=== PATIENT | female | born 2000 ===

== ENCOUNTER 2024-05-29 06:09 | Inpatient (IN) | payer OTHER ==
[~2024-05-29] VITALS: Ht 154.9 cm; Wt 68.0 kg
[2024-05-29] MEDS ORDERED: RINGERS SOLUTION,LACTATED 1,000 ML IV SCH (07:00)
[2024-05-29 07:04] VITALS: BP 112/72
[2024-05-29] MEDS ORDERED: PRENATABS RX T1 EACH PO (07:25)
[2024-05-29] MEDS ORDERED: MISOPROSTOL 25 MCG/4 ML GEL.W.APPL VAG ONE (08:10)
[2024-05-29 08:26] LABS: HEMATOCRIT 34.1 % (36.0-45.00); HEMOGLOBIN 11.6 g/dL (12.0-15.00); MEAN CELL VOLUME 85.5 fL (80.00-100.00); MEAN CORPUSCULAR HEMOGLOBIN 29.2 pg (27.00-32.0); MEAN CORPUSCULAR HGB CONC 34.1 g/dl (32.0-36.0); PLATELET COUNT 253 K/uL (150-450); RED BLOOD COUNT 3.99 M/uL (4.00-6.00); RED CELL DISTRIBUTION WIDTH 13.6 % (11.5-14.5)
[2024-05-29 08:27] LABS: PH,URINE 6.5 (5.0-8.0); URINE APPEARANCE Clear; URINE BILIRRUBIN Negative (NEGATIVE); URINE BLOOD Negative; URINE COLOR Yellow; URINE GLUCOSE Negative (NEGATIVE); URINE KETONE Negative (NEGATIVE); URINE LEUKOCYTE Small; URINE NITRATE Negative; URINE PROTEIN Negative (NEGATIVE)
[2024-05-29 08:30] LABS: URINE EPITHELIAL CELLS 17.5 uL (0.0-38.8); URINE WBC 22.9 uL (0.0-23.2)
[2024-05-29 08:42] LABS: URINE CAST 0.14 uL (0.0-1.40); URINE RBC 0.8 uL (0.0-20.8)
[2024-05-29 08:57] LABS: INR 0.96; PARTIAL THROMBOPLASTIN TIME 26.8 SECONDS (22.0-34.0); PROTHROMBIN TIME 10.5 SECONDS (9.0-11.5)
[2024-05-29 08:59] LABS: ALBUMIN 2.4 gm/dL (3.4-5.0); BILIRUBIN TOTAL 0.69 mg/dL (0.3-1.2); CALCIUM 8.1 mg/dL (8.5-10.1); CREATININE SERUM 0.68 mg/dL (0.55-1.02); GFR 105.42; GLOBULINA 4.2 G/DL (2.4-3.5); POTASSIUM 4.16 mEq/L (3.5-5.1); TOTAL PROTEIN 6.6 gm/dL (6.4-8.2)
[2024-05-29 11:08] VITALS: BP 127/78
[2024-05-29 15:32] VITALS: BP 122/77
[2024-05-29] MEDS ORDERED: OXYTOCIN 500 ML IV SCH (15:45)
[2024-05-29 18:59] VITALS: BP 120/73
[2024-05-29 23:25] VITALS: BP 101/58
[2024-05-30 03:47] VITALS: BP 115/77
[2024-05-30 07:40] VITALS: BP 113/70
[2024-05-30] MEDS ORDERED: MORPHINE SULFATE 4 MG/ML CARTRIDGE IV ONE (10:10)
[2024-05-30] MEDS ORDERED: IBUprofen 400 MG TABLET PO PRN (12:30)
[2024-05-30] MEDS ORDERED: OXYTOCIN 1,000 ML IV SCH (12:45)
[2024-05-30] MEDS ORDERED: OXYTOCIN 10 UNITS/ML VIAL IM STA (12:45)
[2024-05-30] MEDS ORDERED: CHLORHEXIDINE GLUCONATE 120 ML BOTTLE TOP SCH (12:45)
[2024-05-30 16:01] LABS: HEMATOCRIT 36.3 % (36.0-45.00); HEMOGLOBIN 12.3 g/dL (12.0-15.00); MEAN CELL VOLUME 86.1 fL (80.00-100.00); MEAN CORPUSCULAR HEMOGLOBIN 29.2 pg (27.00-32.0); MEAN CORPUSCULAR HGB CONC 33.9 g/dl (32.0-36.0); PLATELET COUNT 226 K/uL (150-450); RED BLOOD COUNT 4.22 M/uL (4.00-6.00); RED CELL DISTRIBUTION WIDTH 13.3 % (11.5-14.5)
[2024-05-30 16:04] VITALS: BP 111/71
[2024-05-31 00:57] VITALS: BP 113/72
[2024-05-31 08:02] VITALS: BP 132/85
[2024-05-31 15:45] VITALS: BP 127/78
[2024-06-01 00:38] VITALS: BP 133/80
[2024-06-01 08:03] VITALS: BP 117/61
== END 2024-06-01 11:47 | disposition home or self-care (01) | DRG 807 ==
LOC: LDR 06:09 → OB/GYN 05-30 12:15
PROVIDERS: ADMIT Obstetrics & Gynecology; ATTEND Obstetrics & Gynecology
PROC: 3E0P7VZ Introduction of Hormone into Female Reproductive, Via Natural or Artificial Opening (ICD-10-PCS; 2024-05-29)
PROC: 4A1HXCZ Monitoring of Products of Conception, Cardiac Rate, External Approach (ICD-10-PCS; 2024-05-29)
PROC: 10E0XZZ Delivery of Products of Conception, External Approach (ICD-10-PCS; principal; 2024-05-30)
PROC: 0KQM0ZZ Repair Perineum Muscle, Open Approach (ICD-10-PCS; 2024-05-30)
PROC: 3E033VJ Introduction of Other Hormone into Peripheral Vein, Percutaneous Approach (ICD-10-PCS; 2024-05-30)
DX: O70.1 Second degree perineal laceration during delivery (principal); Z37.0 Single live birth; Z3A.40 40 weeks gestation of pregnancy; Z20.822 Contact with and (suspected) exposure to COVID-19